=== PATIENT | male | born 1985 | race African-American/Black ===

== ENCOUNTER 2017-01-31 12:30 | Inpatient (IN) | payer OTHER ==
[2017-01-31] VITALS (467 sets, daily range): BP systolic 106–131; BP diastolic 52–80; PULSE 77–874; TEMP 97–98.1; O2SAT 35–100
[~2017-01-31] VITALS: Ht 182.9 cm; Wt 97.0 kg
[2017-01-31 15:52] LABS: HEMOGLOBIN 3.8 g/dl (13.5-18.0)
[2017-01-31] MEDS ORDERED: FISH OIL 1000MG1 CAP PO (19:56)
[2017-01-31] MEDS ORDERED: FLEXERIL 1010 MG/TAB PO (19:57)
[2017-01-31] MEDS ORDERED: AMITRIPTYLINE H25 M1 PO (19:58)
[2017-01-31] MEDS ORDERED: ROBAXIN 50500 MG/TAB PO (20:00)
[2017-01-31] MEDS ORDERED: NAPROXEN 3375 MG/TAB PO (20:01)
[2017-01-31] MEDS ORDERED: VOLTAREN 75 DR75 MG PO (20:03)
[2017-01-31] MEDS ORDERED: TYLENOL 325MG325 MG PO (20:04)
[2017-01-31] MEDS ORDERED: MAG64 110 MG-181 ECT PO (20:06)
[2017-01-31] MEDS ORDERED: RIBOFLAVIN100 MG PO (20:07)
[2017-01-31] MEDS ORDERED: DESYREL 50MG50 MG PO (20:07)
[2017-02-01] VITALS (972 sets, daily range): BP systolic 109–138; BP diastolic 62–76; PULSE 66–106; TEMP 97.1–98.2; O2SAT 82–100
[2017-02-01 00:02] LABS: HEMATOCRIT 18.8 % (42.0-52.0); HEMOGLOBIN 6.3 g/dl (13.5-18.0)
[2017-02-01 07:46] LABS: ADJUSTED CALCIUM 9.2 mg/dL (8.4-10.2); ALBUMIN 2.9 gm/dL (3.5-5.0); BILIRUBIN,TOTAL 0.5 mg/dL (0.0-1.0); CALCIUM 8.3 mg/dL (8.4-10.2); CREATININE, serum 0.97 mg/dL (0.66-1.25); MAGNESIUM 1.9 mg/dL (1.6-2.3); POTASSIUM 3.6 mmol/L (3.4-5.0)
[2017-02-01 07:50] LABS: MEAN CELL VOLUME 94 fl (80.0-100.0); MEAN CORPUSCULAR HGB CONC 33 g/dl (33.0-37.0); MEAN PLATELET VOLUME 10.1 fl (7.4-10.4); PLATELET COUNT 139 K/mm3 (130-400); RED BLOOD COUNT 2.44 M/mm3 (4.20-5.60); REDCELL DISTRIBUTION WIDTH-CV 16.3 % (11.5-14.5)
[2017-02-01 07:54] LABS: ADD PATHOLOGY DIFF REVIEW NO; HEMATOCRIT 22.9 % (42.0-52.0); HEMOGLOBIN 7.6 g/dl (13.5-18.0); MEAN CORPUSCULAR HEMOGLOBIN 31 pg (27.0-31.0)
[2017-02-01 13:08] LABS: BAND 4 % (0-10); NEUTROPHILS 65 % (42.0-75.2); TOTAL CELLS COUNTED 100
[2017-02-01 13:09] LABS: ANISOCYTOSIS 2+; HYPOCHROMIA 1+; POLYCHROMASIA 2+
[2017-02-01 13:14] LABS: WHITE BLOOD COUNT 7.1 K/mm3 (4.8-10.8)
[2017-02-01 18:29] LABS: HEMATOCRIT 22.9 % (42.0-52.0); HEMOGLOBIN 7.7 g/dl (13.5-18.0)
[2017-02-02 02:59] VITALS: BP 114/50; PULSE 94; TEMP 98.6
[2017-02-02 07:39] VITALS: BP 107/67; PULSE 88; TEMP 97.9
[2017-02-02 08:09] LABS: HEMATOCRIT 22.8 % (42.0-52.0); HEMOGLOBIN 7.5 g/dl (13.5-18.0)
[2017-02-02] MEDS ORDERED: FERROUS SU325 MG/TAB PO (10:54)
[2017-02-02] MEDS ORDERED: AMOXICILLIN 50500 MG PO (11:00)
[2017-02-02] MEDS ORDERED: PRILOSEC 20MG20 MG PO (11:00)
[2017-02-02] MEDS ORDERED: BIAXIN 500MG T500 MG PO (11:01)
[2017-02-02 11:22] VITALS: BP 113/53; PULSE 84; TEMP 98.4
== END 2017-02-02 15:20 | disposition home or self-care (01) | DRG 378 ==
LOC: ICU 12:30 → MEDICAL 02-01 21:35
PROVIDERS: Internal Medicine; Internal Medicine Gastroenterology
PROC: 0DB78ZX Excision of Stomach, Pylorus, Via Natural or Artificial Opening Endoscopic, Diagnostic (ICD-10-PCS; principal; 2017-02-01 11:45)
DX: K26.4 Chronic or unspecified duodenal ulcer with hemorrhage (principal); D62 Acute posthemorrhagic anemia; K25.4 Chronic or unspecified gastric ulcer with hemorrhage; F17.210 Nicotine dependence, cigarettes, uncomplicated; Z79.1 Long term (current) use of non-steroidal anti-inflammatories (NSAID)
CPT/HCPCS: 99223-AI; 99232-AI; 99239; C9113; J2250; J3010; J7030; P9016